=== PATIENT | female | born 1945 | race Caucasian/White ===

== ENCOUNTER 2017-12-02 21:15 | Observation (INO) | payer OTHER, MEDICARE ==
--- NOTE | 2017-12-02 21:18 | EDPHY ---
H & P Time Seen by Provider: 12/02/17 21:18 HPI/ROS: HPI CHIEF COMPLAINT: SOB HISTORY OF PRESENT ILLNESS: Very pleasant 72-year-old female she resides in [place], she is out here visiting her son. She arrived yesterday or on Saturday. She states that she felt fine however this eat afternoon she started feeling a little bit more short of breath than normal. She states that she has visit her son multiple times and has gotten altitude illness before with some shortness of breath. She previously was seen here in 2013 for same complaint. States he felt much better after she was placed on oxygen in the emergency room. Patient states that her symptoms started much earlier this afternoon and even felt a little dyspnea yesterday after arriving. Patient arrives by private vehicle with her son she denies any chest pain. She does complain of shortness of breath. Since arriving to the emergency room she was placed on oxygen is feeling much better. Denies chest pressure or chest pain. Denies productive cough. Denies pleuritic pain, denies fever. States also she had a mild headache today. She feels that all of her symptoms are from altitude illness. She reports to me she is in chronic AFib all the time. She reports to me the only medication change she has had is her Lasix was half from 40 mg to 20 mg this happened 5 months ago. She denies her AFib being from ischemic disease or valvular issue. No history of cardiac stents, no history of [place] or stroke. Patient states she had a similar ER visit back in 2013. Past Medical History: Significant past medical history for pulmonary hypertension, not on oxygen, additionally AFib on Eliquis, GERD, CPAP at night Past Surgical History: Cholecystectomy Social History: Resides in [place]. Visiting her son here. Arrived yesterday. Family History: Noncontributory ROS REVIEW OF SYSTEMS: 10 Systems were reviewed and negative with the exception of the elements mentioned in the history of present illness. Exam Constitutional triage nursing summary reviewed, vital signs reviewed, awake/ alert. Noted to be 89% on room air upon arrival. Hypertensive. Eyes normal conjunctivae and sclera, EOMI, PERRLA. HENT normal inspection, atraumatic, moist mucus membranes, no epistaxis, neck supple/ no meningismus, no raccoon eyes. Respiratory clear to auscultation bilaterally, normal breath sounds, no respiratory distress, no wheezing. Cardiovascular rate normal, regular rhythm, no murmur, no edema, distal pulses normal. Gastrointestinal soft, non-tender, no rebound, no guarding, normal bowel sounds, no distension, no pulsatile mass. Genitourinary no CVA tenderness. Musculoskeletal no midline vertebral tenderness, full range of motion, no calf swelling, no tenderness of extremities, no meningismus, good pulses, neurovascularly intact. Skin pink, warm, & dry, no rash, skin atraumatic. Neurologic awake, alert and oriented x 3, AAOx3, moves all 4 extremities equally, motor intact, sensory intact, CN II-XII intact, normal cerebellar, normal vision, normal speech. Psychiatric normal mood/affect. Heme/Lymph/Immune no lymphadenopathy. Differential Diagnosis: Includes but is not limited to in a particular order altitude illness, high altitude pulmonary edema, pulmonary hypertension, reactive airway disease, acute coronary syndrome Medical Decision Making: Plan for this patient IV establishment with full pvc monitor, IV fluid bolus 500 cc normal saline, chest x-ray, EKG, basic blood work, electrolytes and troponin. Re-evaluation: EKG: TIME OF EK: AFib, rate of 85, no ST elevation. However there is digoxin scooping pattern seen on this EKG lead to 3 AVF, additionally V2 V3 V4 V5 V6. When I compare this to her old EKG dated 08/19/2013 is very similar morphology. With the same scooping pattern. ED x-ray chest two view: Cardiomegaly present. Pulmonary hypertension present. No failure. Troponin 0.01. 2240: I discussed at length about being observed overnight hospitalize for dyspnea, and O2 sat of 90% on room air however the patient has declined this she does not want to be admitted the hospital, in-fact she is adamant about going home. Her blood work is pending at this time. I did re-evaluate her at this time she is feeling much better on supplemental oxygen and a 500 cc IV fluid bolus. She is resting comfortably she denies any chest pain or shortness of breath. Plan for the patient be to follow-up her other blood work to make sure electrolytes are okay and her digoxin level is not very high. Will then ambulate her off oxygen around the emergency room and if she maintains a normal O2 sat and does not become acutely dyspneic at her request she can be sent home. She did understand that I felt that was a good idea to be observed overnight on oxygen however she has declined this. Patient's Blood work pending at 11pm Shift-change. The patient's troponin was noted to be negative. The patient's EKG is very similar to previous EKG dated 08/19/2013. The patient's chest x-ray is similar to previous chest x-ray without any evidence of failure. Additionally since the patient wants to go home is declined hospital observation or admission she does understand if she develops worsening shortness of breath, chest discomfort, or does not feel well to return emergency room. This was discussed at length with the patient and her son at bedside. 2313: Had a very long discussion with the patient. After review of her blood work elevated BNP, dyspnea, dyspnea on exertion, hypoxia 89% room air sat, tachycardia I did advise her that it would be appropriate to stay overnight for diuresis, oxygen supplementation observation. Echocardiogram. And further establish care here if she keeps coming up to [place] to visit her son. After long discussion she has agreed to stay overnight. I will consult the hospitalist service for appropriate admission. Patient will be transported by ambulance over to [facility]. EMTALA filled out. 2326: spoke with Dr. Schaeffer agrees to admit patient. Patient agrees for transfer. And Agrees for admission. Reason for admission: SOB, dyspnea, PELAYO, Hypoxia. Source: Patient - Medical/Surgical History Hx Asthma: No Hx Chronic Respiratory Disease: No Hx Diabetes: No Hx Cardiac Disease: Yes Hx Renal Disease: No Hx Cirrhosis: No Hx Alcoholism: No Hx HIV/AIDS: No Hx Splenectomy or Spleen Trauma: No Other PMH: AFIB. GALLBLADDER REMOVAL - Social History Smoking Status: Never smoked Constitutional: Initial Vital Signs O2 Sat (%) 95 12/02/17 21:20 O2 Delivery Mode Nasal Cannula O2 (L/minute) 2 Allergies/Adverse Reactions: No Known Allergies Allergy (Verified 12/02/17 21:20) Home Medications: Medication Instructions Recorded Apixaban [Eliquis] 5 mg PO BID 12/03/17 Calcium Carb W/Vit D [Calcium Carb 500 mg PO BID 12/03/17 W/Vit D 500/200 (*)] Digoxin [Lanoxin 125 mcg (RX)] 125 mcg PO DAILY10 12/03/17 Dorzolamide HCl/Timolol Maleat 1 drop EACHEYE BID 12/03/17 [Dorzolamide-Timolol Eye Drops] FLUoxetine [Prozac 10 MG (*)] 10 mg PO HS 12/03/17 Furosemide [Lasix] 20 mg PO DAILY 12/03/17 Herbals/Supplements -Info Only 1 ea PO DAILY 12/03/17 Ibandronate Sodium [Boniva] 150 mg PO Q30D 12/03/17 Latanoprost 0.005% [Xalatan 0.005% 1 drops EACHEYE HS 12/03/17 (*)] Metoprolol Succinate Xr [Toprol Xl 25 mg PO DAILY 12/03/17 25 mg (*)] Omeprazole 20 mg PO DAILY 12/03/17 Potassium Chloride [Klor-Con M20] 20 meq PO DAILY 12/03/17 Medical Decision Making - Data Points Laboratory Results: Laboratory Results 12/02/17 21:41 12/02/17 21:41 Medications Given: Discontinued Medications Acetaminophen (Tylenol) 1,000 mg PO EDNOW ONE Stop: 12/02/17 23:43 Last Admin: 12/02/17 23:47 Dose: 1,000 mg Acetaminophen (Tylenol) 650 mg PO Q4HRS PRN PRN Reason: Pain, Mild/Fever, Can Take PO Stop: 06/01/18 00:00 Last Admin: 12/03/17 08:35 Dose: 650 mg Apixaban (Eliquis) 5 mg PO BID [facility] Stop: 06/01/18 09:29 Last Admin: 12/03/17 10:54 Dose: 5 mg Calcium/Vitamin D (Calcium Carb W/Vit D) 500 mg PO BID YAMINI Stop: 06/01/18 09:29 Last Admin: 12/03/17 10:54 Dose: 500 mg Digoxin (Lanoxin) 125 mcg PO DAILY10 YAMINI Stop: 06/01/18 09:59 Last Admin: 12/03/17 10:55 Dose: 125 mcg Furosemide (Lasix Injection) 40 mg IVP EDNOW ONE Stop: 12/02/17 23:15 Last Admin: 12/02/17 23:19 Dose: 40 mg Furosemide (Lasix Injection) 20 mg IVP ONCE ONE Stop: 12/03/17 09:02 Last Admin: 12/03/17 09:28 Dose: 20 mg Sodium Chloride (Ns) 500 mls @ 1,000 mls/hr IV EDNOW ONE PRN Reason: Protocol Stop: 12/02/17 21:59 Last Admin: 12/02/17 22:04 Dose: 500 mls Melatonin (Melatonin) 6 mg PO HS YAMINI Stop: 06/01/18 02:29 Last Admin: 12/03/17 02:33 Dose: 6 mg Metoprolol Succinate (Toprol Xl) 25 mg PO DAILY YAMINI Stop: 06/01/18 09:29 Last Admin: 12/03/17 10:54 Dose: 25 mg Pantoprazole Sodium (Protonix) 40 mg PO DAILY YAMINI Stop: 06/01/18 09:29 Last Admin: 12/03/17 10:54 Dose: 40 mg Potassium Chloride (Klor-Con) 20 meq PO DAILY [facility] Stop: 06/01/18 09:29 Last Admin: 12/03/17 10:55 Dose: 20 meq Point of Care Test Results: Chemistry 12/02/17 21:51 POC Troponin I 0.01 ng/mL ng/mL (0.00-0.08) Departure - Departure Disposition: [facility] Inpatient Acute Clinical Impression: Dyspnea Qualifiers: Dyspnea type: unspecified Qualified Code(s): R06.00 - Dyspnea, unspecified Condition: Good
[2017-12-02] MEDS ORDERED: NS 500 ML IV ONE (21:30)
[2017-12-02 22:50] LABS: PLATELET COUNT 155 10^3/uL (150-400)
[2017-12-02 23:03] LABS: INR 1.25 (0.83-1.16); PROTIME(PATIENT) 15.9 SEC (12.0-15.0)
[2017-12-02] MEDS ORDERED: FUROSEMIDE 40 MG/4 ML VIAL IVP ONE (23:14)
[2017-12-02] MEDS ORDERED: ACETAMINOPHEN 500 MG TAB PO ONE (23:42)
[2017-12-03] MEDS ORDERED: ACETAMINOPHEN 325 MG TAB PO PRN
[2017-12-03] MEDS ORDERED: ONDANSETRON 4 MG/2 ML VIAL IVP PRN
[2017-12-03] MEDS ORDERED: diphenhydrAMINE 25 MG CAP PO PRN (02:27)
[2017-12-03] MEDS ORDERED: MELATONIN 3 MG TAB PO SCH (02:30)
--- NOTE | 2017-12-03 02:40 | PDGENHP ---
History and Physical - Chief Complaint Shortness of breath - History of Present Illness Source-patient is a pleasant 72-year-old female with past medical history significant for atrial fibrillation controlled on digoxin on chronic anticoagulation with Eliquis, GERD, glaucoma, HTN, anxiety and depression, pulmonary hypertension, obstructive sleep apnea on CPAP who presents emergency department today with development of progressive shortness of breath since arrival from [place] 2 days ago. Patient denies any fevers or chills. She denies any cough. She denies any orthopnea, PND, lower extremity edema. Patient denies any chest pain or palpitations. Patient reports that she exercises moderate to high intensity exercise 6 times a week with [email or web address]. She reports a similar episode 4 years ago when she presented to the emergency department with concerns for altitude sickness. She was given diuresis and discharge from ED which she was hoping would happen today after patient took a 2nd dose of Lasix in the afternoon at home. Patient's symptoms persisted however and so she presented to the ED where she did have some mild hypoxia at 88% on room air per ED provider. She also developed tachycardia in the 1 teens. Patient's BNP was 30 30 in the ED. No evidence of pulmonary edema on imaging however given patient's hypoxia she was given diuresis and on admitted for observation overnight. Patient reports that prior to visiting from [place] she did see her both her mirror fabrication supervisor Dr. Jailene Gray with the [facility] as well as her re etcher. She reports that she had a echocardiogram completed last week but has not yet heard the results. Patient also reports that she had PFTs completed and was advised that her lung capacity testing was excellent. Patient is here visiting her son for 5 days. She has not gone above [place] elevation. History Information - Allergies/Home Medication List Allergies/Adverse Reactions: No Known Allergies Allergy (Verified 12/02/17 21:20) Home Medications: Metoprolol Tartrate 08/19/13 [Last Taken Unknown] Pradaxa 150 MG (RX) 08/19/13 [Last Taken Unknown] Prilosec 08/19/13 [Last Taken Unknown] Prozac 10 MG (RX) 08/19/13 [Last Taken Unknown] Digoxin 12/02/17 [Last Taken Unknown] Dorzolamide-Timolol Eye Drops 12/02/17 [Last Taken Unknown] Eliquis 12/02/17 [Last Taken Unknown] Furosemide 12/02/17 [Last Taken Unknown] Omeprazole 12/02/17 [Last Taken Unknown] Potassium Cl 12/02/17 [Last Taken Unknown] I have personally reviewed and updated: family history, medical history, social history, surgical history - Past Medical History atrial fibrillation, GERD, glaucoma Additional medical history: Atrial fibrillation on Eliquis controlled with digoxin. GERD. Glaucoma. HTN. Anxiety and depression. Pulmonary hypertension. LOUISE on CPAP at - Surgical History Additional surgical history: Left total hip arthroplasty. Cholecystectomy. - Family History Additional family history: Father with history of CVA lived to 90s. No family history of CHF. - Social History Smoking Status: Never smoked Alcohol Use: Occasionally (Socially) Drug Use: None Additional social history: Patient is and lives in [place]. She is here visiting her son in the [place] area. Cor status full. Review of Systems Review of Systems: ROS: 10pt was reviewed & negative except for what was stated in HPI & below Constitutional: Denies: chills, fever EENMT: Reports: no symptoms Cardiac: Reports: no symptoms. Denies: chest pain, edema, lightheadedness, palpitations, syncope Respiratory: Reports: shortness of breath. Denies: cough, wheezing Gastrointestinal: Reports: no symptoms Genitourinary: Reports: no symptoms Muscolosketal: Reports: no symptoms Skin: Reports: no symptoms Neurological: Reports: no symptoms Hematologic/Lymphatic: Reports: no symptoms Physical Exam Physical Exam: Selected Entries 12/02/17 21:21 Blood Pressure Automatic Method Heart Rate 112 H Respiratory 20 Rate O2 Sat (%) 88 L Blood Pressure 177/93 H Mean Arterial 121 H Pressure (MAP) O2 Delivery Room Air Mode Temperature Oral Source Temp Pulse Resp BP Pulse Ox 36.7 C 80 16 180/96 H 98 12/03/17 01:30 12/03/17 01:30 12/03/17 01:30 12/03/17 01:30 12/03/17 01:30 O2 (L/minute) 2 Constitutional: no apparent distress, other (NAD. Pleasant adult female is resting comfortably in bed. Appears slightly younger than stated age.) Eyes: PERRL, anicteric sclera, EOMI, No scleral injection Ears, Nose, Mouth, Throat: moist mucous membranes, other (No nasal discharge.), No poor dentition Cardiovascular: no murmur, rub, or gallop, irregularly irregular, pulses symmetric bilaterally, No edema Peripheral Pulses: 2+: dorsalis-pedis (R), dorsalis-pedis (L) Respiratory: no respiratory distress, no rales or rhonchi, clear to auscultation , No expiratory wheeze, No inspiratory crackles Gastrointestinal: normoactive bowel sounds, soft, non-tender abdomen, no palpable masses, No distension Genitourinary: no bladder tenderness, No dickinson in urethra Skin: warm, normal color, no rashes or abrasions Musculoskeletal: other (Patient moves all extremities. Sits up independently. Strength grossly normal.), No generalized weakness Neurologic: AAOx3, sensation intact bilaterally, other (Grossly nonfocal.), No facial droop Psychiatric: interacting appropriately, not anxious, not encephalopathic, thought process linear, other (Thought process content and questions appropriate. Patient is pleasant and cooperative.) Lab Data & Imaging Review 12/02/17 21:41 12/02/17 21:41 WBC 6.17 10^3/uL (3.80-9.50) 12/02/17 21:41 RBC 3.92 10^6/uL (4.18-5.33) L 12/02/17 21:41 Hgb 13.0 g/dL (12.6-16.3) 12/02/17 21:41 Hct 39.3 % (38.0-47.0) 12/02/17 21:41 MCV 100.3 fL (81.5-99.8) H 12/02/17 21:41 MCH 33.2 pg (27.9-34.1) 12/02/17 21:41 MCHC 33.1 g/dL (32.4-36.7) 12/02/17 21:41 RDW 13.5 % (11.5-15.2) 12/02/17 21:41 Plt Count 155 10^3/uL (150-400) 12/02/17 21:41 MPV 10.1 fL (8.7-11.7) 12/02/17 21:41 Neut % (Auto) 79.1 % (39.3-74.2) H 12/02/17 21:41 Lymph % (Auto) 11.7 % (15.0-45.0) L 12/02/17 21:41 [place] % (Auto) 7.1 % (4.5-13.0) 12/02/17 21:41 Eos % (Auto) 1.6 % (0.6-7.6) 12/02/17 21:41 Baso % (Auto) 0.3 % (0.3-1.7) 12/02/17 21:41 Nucleat RBC Rel Count 0.0 % (0.0-0.2) 12/02/17 21:41 Absolute Neuts (auto) 4.88 10^3/uL (1.70-6.50) 12/02/17 21:41 Absolute Lymphs (auto) 0.72 10^3/uL (1.00-3.00) L 12/02/17 21:41 Absolute Monos (auto) 0.44 10^3/uL (0.30-0.80) 12/02/17 21:41 Absolute Eos (auto) 0.10 10^3/uL (0.03-0.40) 12/02/17 21:41 Absolute Basos (auto) 0.02 10^3/uL (0.02-0.10) 12/02/17 21:41 Absolute Nucleated RBC 0.00 10^3/uL (0-0.01) 12/02/17 21:41 Immature Gran % 0.2 % (0.0-1.1) 12/02/17 21:41 Immature Gran # 0.01 10^3/uL (0.00-0.10) 12/02/17 21:41 PT 15.9 SEC (12.0-15.0) H 12/02/17 21:41 INR 1.25 (0.83-1.16) H 12/02/17 21:41 APTT 23.8 SEC (23.0-38.0) 12/02/17 21:41 Sodium 141 mEq/L (135-145) 12/02/17 21:41 Potassium 4.4 mEq/L (3.3-5.0) 12/02/17 21:41 Chloride 103 mEq/L (97-110) 12/02/17 21:41 Carbon Dioxide 26 mEq/l (22-31) 12/02/17 21:41 Anion Gap 12 mEq/L (8-16) 12/02/17 21:41 BUN 16 mg/dL (7-23) 12/02/17 21:41 Creatinine 0.9 mg/dL (0.6-1.0) 12/02/17 21:41 Estimated GFR > 60 12/02/17 21:41 Glucose 98 mg/dL (70-100) 12/02/17 21:41 Calcium 9.9 mg/dL (8.5-10.4) 12/02/17 21:41 Magnesium 1.9 mg/dL (1.6-2.3) 12/02/17 21:41 POC Troponin I 0.01 ng/mL (0.00-0.08) 12/02/17 21:51 NT-Pro-B Natriuret Pep 3030 pg/mL (0-125) H 12/02/17 21:41 Digoxin 0.4 ng/mL (0.8-2.0) L 12/02/17 21:41 Imaging Review: Chest, Two Views at 2151 hours History: Chest Pain Comparison: August 2013 Findings: Cardiac silhouette is mildly enlarged. Atherosclerotic aorta. Mild pulmonary venous hypertension. No pneumonia, pleural effusion or pneumothorax. Impression: 1. Cardiomegaly. 2. Mild pulmonary venous hypertension. Dictated By: Khoi Gardiner Chest X-Ray results: no infiltrate, other (Cardiomegaly, pulmonary hypertension) Visualized and Interpreted EKG results: Yes EKG additional interpertation: Atrial fibrillation. Ventricular rate in the 80s. ST depressions in diffuse leads likely report changes. Appear stool from EKG compared to 2014. QTC is 424. Assessment & Plan Assessment: Pleasant 72-year-old female with a history of AFib on digoxin and Eliquis, HTN, GERD, LOUISE on CPAP, glaucoma who presents to the ED today with complaints of progressive dyspnea without chest pain since arrival from [place]. #Dyspnea (Acute) - Ddx - including CHF exacerbation vs. HAPE vs. AFib exacerbation vs. Less likely PE (as patient is on Eliquis) or infectious process. Patient received diuresis in the emergency department with improvement in her symptoms. She continues to have a minimal drop in her O2 sat to 90% on room air. Will plan to resume patient's home Lasix dosing at 20 mg in the morning unless there is evidence of persistent pulmonary edema on chest x-ray in the morning. Additionally patient reports that she has no previous history of CHF and just had an echocardiogram last week with her primary mirror fabrication supervisor in [place] but is unaware of the final results. Will try to obtain records from the office of Dr. Jailene Gray with the [facility] to ensure no evidence of CHF. May need to consider increasing patient's diuretic therapy to twice daily total 40 mg which she is hesitant to do secondary to increased frequency and urination. Continue Eliquis. Continue digoxin. Titrate off of O2 as tolerated. CPAP at hs. Atrial fibrillation - patient's heart rate increases to the 1 teens to 120s with exertion. Continue with diuretic therapy and monitor on telemetry. Chronic medical issues #Benign essential hypertension - monitor blood pressures. Resume metoprolol 1 med rec is available. #Glaucoma - continue timolol drops at discharge. #Anxiety/depression - resume patient's fluoxetine. #Pulmonary hypertension - patient not currently requiring supplemental oxygen while at rest. CPAP as noted below. #LOUISE on CPAP - patient brought home CPAP to the hospital. FEN - saline lock IV. Diuresis as noted above. Monitor BMP in setting of low diuresis. Cardiac diet PPX- SCDs. Eliquis. Cor status-full Disposition-patient admitted observation status on PCU for close cardiac monitoring. Pending repeat chest x-ray and echocardiogram results from primary mirror fabrication supervisor potentially patient could be discharged later today. She is actually anxious to discharge as soon as possible for planned event in [place] this evening with her son as she is already feeling better and notes that she did not anticipate requiring hospitalization but understands given her hypoxia.
[2017-12-03] MEDS ORDERED: FUROSEMIDE 20 MG/2 ML VIAL IVP ONE (09:01)
[2017-12-03 09:12] VITALS: BP 148/78
[2017-12-03] MEDS ORDERED: CALCIUM CARB W/VIT D 500 MG TAB PO SCH (09:30)
[2017-12-03] MEDS ORDERED: POTASSIUM CL 20 MEQ TAB PO SCH (09:30)
[2017-12-03] MEDS ORDERED: APIXABAN 5 MG TAB PO SCH (09:30)
[2017-12-03] MEDS ORDERED: PANTOPRAZOLE SODIUM 40 MG TAB PO SCH (09:30)
[2017-12-03] MEDS ORDERED: METOPROLOL SUCCINATE XR 25 MG TAB PO SCH (09:30)
--- NOTE | 2017-12-03 09:49 | ASDISCHSUM ---
Discharge Information Plan Status:Home with No Needs Medically Cleared to Leave: Discharge Date: CM D/C Disposition:Home, Routine, Self-Care ADT D/C Disposition:Home, Routine, Self-Care Projected Discharge Date: Transportation at D/C:Family Discharge Delay Reason: Follow-Up Date: Discharge Slot: Final Diagnosis: Placement Information Patient Contact Information Contact Name:LEA Relationship: Address:[address] Work Phone: City:[place] Alternate Phone: State/Zip Code:[place] [address] Email: Financial Information Financial Class:Medicare Primary Plan Desc:MEDICARE OUTPATIENT Primary Plan Number:[id number] Secondary Plan Desc:[employer]/MDR SUPPLEMENT Secondary Plan Number:[id number] Assessment Information LACE LACE Length of stay for Answers: Less than 1 day current admission Acuity / Level of Answers: No Care: Did the patient have an inpatient admission? Comorbidities - select Answers: Other Notes: HTN; AFib; GERD all that apply # of Emergency department Answers: 1-2 visits in the last 6 months Social determinants Answers: Mental health diagnosis (anxiety, depression, pers onality disorders, etc.) Score: 5 Date Signed: 12/03/2017 09:48 AM Electronically Signed By:Lin Sloan Intervention Information
--- NOTE | 2017-12-03 09:50 | GDS ---
ALL DIAGNOSES: 1. Dyspnea. 2. Mild pulmonary edema/volume overload. 3. Atrial fibrillation, chronic. 4. Hypertension. 5. Glaucoma. 6. Anxiety/depression. 7. Pulmonary hypertension. 8. Obstructive sleep apnea, on CPAP. HOSPITAL COURSE: A 72-year-old female who presented to the emergency department with dyspnea. She h as a history of atrial fibrillation, as well as known pulmonary hypertension. She is visiting from [facility]. She received a dose of intravenous Lasix in the emergency department and does feel better. She was mildly hypoxic on admission. She continues to have slightly low sats around 88-90 with ambu lation. She tells me that this is baseline for her, even in [place]. She has cardiology, as well a s pulmonology followup there. I reviewed her echocardiogram a week ago, which shows right-sided pres sures of around 55 mmHg, normal valves, normal ejection fraction. Her rate has been controlled here on her home medications. She is quite anxious to leave. I recommend giving her 1 additional dose of intravenous Lasix right now and then discharge. She is flying back to [place] tomorrow. She will follow up with her physicians there. 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 She will con tessa to use her CPAP. DISPOSITION: She was discharged in stable condition. /[id number]/MODL
[2017-12-03] MEDS ORDERED: DIGOXIN 125 MCG TAB PO SCH (10:00)
--- NOTE | 2017-12-03 17:48 | CPEKG ---
Test Reason : OPEN Blood Pressure : / mmHG Vent. Rate : 078 BPM Atrial Rate : 000 BPM P-R Int : 182 ms QRS Dur : 085 ms QT Int : 382 ms P-R-T Axes : 000 082 -87 degrees QTc Int : 436 ms Atrial fibrillation Borderline right axis deviation Repol abnrm suggests ischemia, diffuse leads Confirmed by Familia Mandel ([id number]) on 12/03/2017 5:48:13 PM Referred By: Confirmed By:Familia Mandel
[2017-12-03] MEDS ORDERED: FLUoxetine 10 MG CAP PO SCH (21:00)
[2017-12-03] MEDS ORDERED: DORZOLAMIDE/TIMOLOL 10 ML OPHT.BTL EACHEYE SCH (21:00)
[2017-12-03] MEDS ORDERED: LATANOPROST 0.005% 2.5 ML OPHT DROPS EACHEYE SCH (21:00)
--- NOTE | 2017-12-03 22:35 | CPEKG ---
Test Reason : OPEN Blood Pressure : / mmHG Vent. Rate : 085 BPM Atrial Rate : 000 BPM P-R Int : 270 ms QRS Dur : 086 ms QT Int : 356 ms P-R-T Axes : 050 082 -82 degrees QTc Int : 424 ms Atrial fibrillation Borderline right axis deviation Nonspecific repol abnormality, diffuse leads Confirmed by Rob Parada ([id number]) on 12/03/2017 10:34:23 PM Referred By: Confirmed By:Rob Parada
== END 2017-12-03 12:25 | disposition home or self-care (01) ==
LOC: CED 21:15 → CEDHOLD 23:23 → F2W 12-03 01:15
PROVIDERS: ADMIT Family Medicine; ATTEND Student in an Organized Health Care Education/Training Program
DX: R06.00 Dyspnea, unspecified (principal); I27.20 Pulmonary hypertension, unspecified; E86.9 Volume depletion, unspecified; I48.2 Chronic atrial fibrillation; I10 Essential (primary) hypertension; F41.8 Other specified anxiety disorders; G47.33 Obstructive sleep apnea (adult) (pediatric); H40.9 Unspecified glaucoma; Z79.01 Long term (current) use of anticoagulants; Z96.642 Presence of left artificial hip joint
CPT/HCPCS: 71046; 93005; 96361; 96374; 96375; 99285; G0378; J1940; 84484-PO